=== PATIENT | female | born 1975 | race Caucasian/White ===

== ENCOUNTER 2020-02-24 11:30 | Emergency (ER) | payer SELFPAY ==
[~2020-02-24] VITALS: Ht 177.8 cm; Wt 106.8 kg
[2020-02-24] MEDS ORDERED: HYDROcodone/acetaminophen 10/325mg tab PO STA (13:24)
[2020-02-24 13:36] VITALS: BP 151/99
[2020-02-24] MEDS ORDERED: HYDROcodone/acetaminophen 5mg/325mg tablet PO ONE (13:40)
[2020-02-24] MEDS ORDERED: ondansetron 4mg rapidly disintigrating tab PO ONE (13:40)
== END 2020-02-24 13:50 | disposition home or self-care (01) ==
LOC: ER 11:31
DX: S82.831A Other fracture of upper and lower end of right fibula, initial encounter for closed fracture (principal); W18.40XA Slipping, tripping and stumbling without falling, unspecified, initial encounter; Y93.89 Activity, other specified; Y92.89 Other specified places as the place of occurrence of the external cause; Y99.8 Other external cause status
CPT/HCPCS: 73610; 73630; 99284